=== PATIENT | female | born 1935 | race Caucasian/White ===

== ENCOUNTER 2018-06-12 17:20 | Emergency (ER) | payer MEDICARE, OTHER ==
[~2018-06-12] VITALS: Ht 170.1 cm; Wt 72.6 kg
--- NOTE | ~2018-06-12 | EKG ---
[place], [place] ELECTROCARDIOGRAM REPORT NAME: JENS DODD UNIT #: [id number] ROOM: DOCTOR: EPIPHANY DRAFT REPORT BIRTHDATE: [birth year] [facility] Test Date: 2018-06-12 Test Time: 17:48:53 Pat Name: JENS DODD Department: Room: Gender: F [employer]: 18 : 1935 Requested By: PRINCE MCCURDY Order Number: [id number] Reading MD: Chiquita Murphy MD Measurements Intervals [place] Rate: 86 P: 66 MN: 170 QRS: 1 QRSD: 102 T: 47 QT: 377 QTc: 451 Interpretive Statements Sinus rhythm Left ventricular hypertrophy Baseline wander in lead(s) V1 Electronically Signed On 06-18-2018 9:22:01 PST by Chiquita Murphy MD CM:EKGRPT:ELECTROCARDIOGRAM REPORT [id number] PRINCE BOSTON DRAFT REPORT PRINCE MCCURDY M.D.
[2018-06-12 17:51] LABS: BASO % 0.3 % (0.0-1.0); EOS % 0.3 % (1.0-4.0); HEMATOCRIT 34.7 % (37.0-47.0); HEMOGLOBIN 10.9 g/dl (12.0-16.0); LYMPH # 1.9 10*3/uL (1.3-4.4); LYMPH % 17.5 % (27.0-41.0); MEAN CELL VOLUME 93.5 fl (81.0-99.0); MEAN CORPUSCULAR HGB 29.4 pg (27.0-31.0); MEAN CORPUSCULAR HGB CONC 31.4 g/dl (33.0-37.0); MEAN PLATELET VOLUME 10.4 fl (9.6-12.3); MONO # 0.6 10*3/uL (0.1-1.0); MONO % 5.8 % (3.0-9.0); NEUT # 8.4 10*3/uL (2.3-7.9); NEUT % 75.8 % (47.0-73.0); PLATELET COUNT AUTOMATED 261 10*3/uL (130-400); RED BLOOD COUNT 3.71 10*6/uL (4.10-5.10); RED CELL DISTRI WIDTH 13.4 % (0-14.5)
[2018-06-12 18:01] LABS: ACT PARTIAL THROMBO TIME 23.7 SECONDS (20.8-31.5)
[2018-06-12 18:04] LABS: ALBUMIN 3.2 gm/dl (3.1-4.5); ALKALINE PHOSPHATASE 103 U/L (45-117); BUN 22 mg/dl (7-24); CHLORIDE 110 mmol/L (98-107); CREATININE 0.98 mg/dL (0.55-1.02); POTASSIUM 4.5 mmol/L (3.5-5.1); SGOT/AST 18 IU/L (3-35); SGPT/ALT 21 U/L (12-78); SODIUM 143 mmol/L (136-145)
== END 2018-06-12 19:55 | disposition short-term general hospital (02) ==
LOC: ED 17:20
PROVIDERS: Emergency Medicine
DX: G45.9 Transient cerebral ischemic attack, unspecified (principal)

== ENCOUNTER 2024-04-09 22:23 | Inpatient (IN) | payer OTHER ==
[~2024-04-09] VITALS: Ht 152 cm; Wt 69.0 kg
[~2024-04-09 22:23] MED LIST: ASPIRIN CHEWABL81 MG PO; BISACODYL10 MG R; COLACE100 MG PO; ERGOCALCIFEROL1 GM MC; IRON325 M1 PO; Ipratropium Brom3 ML INH; LEVOFLOXACIN500 MG PO; LEVOTHYROXINE100 MC1 PO; LEVOTHYROXINE100 MC2 PO; LIDOCAINE PAIN1 EACH T; MUCUS RELIEF E600 MG PO; NATURE'S BLEND F1 MG PO; TYLENOL EXTRA500 MG PO; VIBRAMYCIN HYC100 MG PO
[2024-04-09] MEDS ORDERED: MORPHINE Sulfate 50 MG in SODIUM CHLORIDE 0.9% 45 ML IV SCH (22:50)
[2024-04-09] MEDS ORDERED: Levalbuterol Hydrochloride 0.63 MG VIAL NEB PRN (22:50)
[2024-04-09] MEDS ORDERED: ACETAMINOPHEN 650 MG SUPP R PRN (22:55)
[2024-04-09] MEDS ORDERED: ATROPINE SULFATE 1% 2 ML BOTTLE SL PRN (22:55)
[2024-04-09] MEDS ORDERED: BISACODYL 10 MG SUPP R PRN (22:55)
[2024-04-09] MEDS ORDERED: LORazepam 2 MG/ML VIAL IV PRN (22:55)
[2024-04-09] MEDS ORDERED: MORPHINE Sulfate 2 MG/ML SYR IV PRN (22:55)
[2024-04-09] MEDS ORDERED: SODIUM CHLORIDE 0.9% 1,000 ML IV SCH (23:00)
[2024-04-10] VITALS: BP 105/64
[2024-04-10 08:00] VITALS: BP 115/69
[2024-04-10 20:00] VITALS: BP 95/51
[2024-04-11 08:00] VITALS: BP 100/60
== END 2024-04-11 09:50 | DRG 872 ==
LOC: 4E 22:23
PROVIDERS: ADMIT Internal Medicine; ATTEND Internal Medicine
DX: A41.9 Sepsis, unspecified organism (principal); E87.20 Acidosis, unspecified; K81.0 Acute cholecystitis; N17.9 Acute kidney failure, unspecified; Z66 Do not resuscitate; G30.1 Alzheimer's disease with late onset; K82.8 Other specified diseases of gallbladder; F02.80 Dementia in other diseases classified elsewhere, unspecified severity, without behavioral disturbance, psychotic disturbance, mood disturbance, and anxiety; Z51.5 Encounter for palliative care